=== PATIENT | male | born 1980 | race Caucasian/White ===

== ENCOUNTER 2024-11-03 09:05 | Outpatient (CLI) | payer OTHER ==
--- NOTE | 2024-11-03 13:02 | RADIOLOGY REPORT ---
CLINICAL INFORMATION: Left wrist pain. Osteoarthritis. COMPARISON: None available at the time of dictation. TECHNIQUE: Multisequence multiplanar MRI images of the left wrist were obtained without contrast. FINDINGS: TFCC: Full-thickness perforation of the articular disc of the TFCC at its ulnar aspect. ULNAR VARIANCE: Neutral. DRUJ: No dislocation or subluxation. Moderate to severe arthritic changes of the distal radioulnar kurtis int with prominent subchondral sclerosis and cystic change of the sigmoid notch of the distal radius and adjacent portions of the distal ulna. LIGAMENTS: No widening of the scapholunate or lunotriquetral intervals to suggest significant scaphol unate or lunotriquetral ligament tears. Motion artifact limits evaluation for subtle findings in thes e ligaments. Edema and indistinctness of the fibers of the radial collateral ligament of the wrist, l ikely sequela of at least partial-thickness tear, may be chronic. Limited evaluation due to motion ar tifact. FLEXOR TENDONS: Unremarkable signal intensity and course. No significant tendinosis, tenosynovitis, o r tear. CARPAL TUNNEL: Unremarkable. Normal appearance of the median nerve and flexor retinaculum. EXTENSOR TENDONS: Unremarkable signal intensity and course. No significant tendinosis, tenosynovitis, or tear. BONES/JOINTS: Severe arthritic changes at the radiocarpal joint and ulnocarpal joint with severe join t space narrowing and prominent subchondral cystic change involving the distal radius, distal ulna, a nd proximal aspects of the lunate. There is extensive marrow edema in the lunate and areas of cortica l deformity at its proximal aspect. 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 Prominent artifact along the dorsal aspect of the distal ulna, li belkis sequela of prior postsurgical changes. There is cortical deformity of the distal articular surf mitchel of the ulna, may be due to a sequela of postsurgical changes and arthritic changes. Moderate arth ritic changes are seen of the 1st carpometacarpal joint and triscaphe joint with joint space narrowin g and mild osteophytes. Marrow edema in the distal radius and distal ulna are likely due to a combina tion of arthritic changes and stress related changes. OTHER: No other significant findings. IMPRESSION: 1. Arthritic changes of the wrist involving the radiocarpal joint, ulnocarpal joint, distal radioulna r joint as detailed above. 2. Extensive marrow edema, sclerosis, and cortical deformity of the lunate as described above. 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 3. Moderate arthritic changes in the 1st carpometacarpal joint and triscaphe joint. 4. 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 5. Suspected tear of the radial collateral ligament of the wrist, of uncertain chronicity, may be chr onic. 6. Motion artifact limits evaluation for subtle findings. 7. Additional findings as described above.
== END 2024-11-03 23:59 | disposition home or self-care (01) ==
LOC: MRI02 09:05
PROVIDERS: ATTEND Physician Assistant
DX: S63.31 Traumatic rupture of collateral ligament of wrist (principal); M19.032 Primary osteoarthritis, left wrist; M25.532 Pain in left wrist; M18.12 Unilateral primary osteoarthritis of first carpometacarpal joint, left hand; X58.XXXA Exposure to other specified factors, initial encounter; Y93.89 Activity, other specified; Y92.89 Other specified places as the place of occurrence of the external cause; Y99.8 Other external cause status
CPT/HCPCS: 73221

== ENCOUNTER 2024-11-20 10:27 | Day surgery (SDC) | payer OTHER ==
--- NOTE | 2024-11-17 12:15 | ELECTROCARDIOGRAPH REPORT ---
[facility] Test Date: 2024-11-17 Test Time: 12:10:48 Pat Name: HERNANDEZ CHÁVEZ Department: [facility]-PRE-OP Patient ID: [facility]-[id number] Room: Gender: M Quality Consultant: REGLA : 1980 Requested By: ANUEL ACEVEDO Order Number: [id number] Reading MD: Dr. SONIA Monzon Measurements Intervals [place] Rate: 67 P: 61 [place]: 180 QRS: 89 QRSD: 110 T: 70 QT: 408 QTc: 431 Interpretive Statements Sinus rhythm ST elev, probable normal early repol pattern Electronically Signed On 11-17-2024 13:45:[address] SONIA Monzon Please click the below link to view image of tracing.
[2024-11-17 12:21] LABS: BASOPHILS # (AUTO) 0.1 X10'3 (0-0.2); BASOPHILS % (AUTO) 0.9 % (0-1); EOSINOPHILS # (AUTO) 0.2 X10'3 (0-0.9); EOSINOPHILS % (AUTO) 3.1 % (0-6); LYMPHOCYTES # (AUTO) 1.6 X10'3 (1.1-4.8); LYMPHOCYTES % (AUTO) 29.2 % (21-51); MEAN CORPUSCULAR HEMOGLOBIN 30.2 PG (27.0-31.0); MEAN CORPUSCULAR HGB CONC 33.5 g/dL (33.0-36.5); MEAN CORPUSCULAR VOLUME 90.1 FL (78-98); MEAN PLATELET VOLUME 8.2 FL (7.4-10.4); MONOCYTES # (AUTO) 0.4 X10'3 (0-0.9); MONOCYTES % (AUTO) 7.2 % (2-12); NEUTROPHILS # (AUTO) 3.2 X10'3 (1.8-7.7); NEUTROPHILS % (AUTO) 59.6 % (42-75); PRE OP HEMATOCRIT 41.9 % (42.0-52.0); PRE OP PLATELET COUNT 234 X10'3 (140-440); PRE OP WHITE BLOOD COUNT 5.4 10'3 (4.8-10.8); RED BLOOD COUNT 4.65 X10'6 (4.70-6.10); RED CELL DISTRIBUTION WIDTH 12.6 % (11.5-14.5)
[2024-11-17 12:38] LABS: ALBUMIN 4.2 G/DL (3.4-5.0); ALBUMIN/GLOBULIN RATIO 1.4 (1.1-1.5); ALKALINE PHOSPHATASE 53 IU/L (46-116); BLOOD UREA NITROGEN 18 MG/DL (7-18); BUN/CREATININE RATIO 19.6 (10.0-20.0); CALCIUM 8.8 MG/DL (8.5-10.1); CHLORIDE 100 MMOL/L (99-107); CREATININE 0.92 MG/DL (0.60-1.10); PRE OP ALT 22 U/L (30-65); PRE OP AST 13 U/L (10-37); PRE OP BILIRUB, TOTAL 0.5 MG/DL (0.0-1.0); PRE OP GLUCOSE 93 MG/DL (70-104); PRE OP POTASSIUM 4.2 MMOL/L (3.4-5.1); TOTAL CARBON DIOXIDE 29.2 MMOL/L (24-32); TOTAL PROTEIN 7.2 G/DL (6.4-8.2); eGFR 90 ML/MIN
[2024-11-17 12:39] LABS: PRE OP ANION GAP 6 (8-16); PRE OP SODIUM 135 MMOL/L (135-145)
[~2024-11-20] VITALS: Ht 188 cm; Wt 103.9 kg
[2024-11-20] VITALS (9 sets, daily range): BP systolic 117–130; BP diastolic 69–91; PULSE 53–60; RESP 9–18; TEMP 97.5; O2SAT 95–98
[2024-11-20] MEDS: ceFAZolin 2gm/dext,iso 50mL 50 ML IV ONE (05:30)
[2024-11-20] MEDS: ringers solution, lacted 1,000 ML IV SCH (05:30)
[~2024-11-20 10:27] MED LIST: CARI3CAP PO; DEXT20CA4 PO; ESZO3TAB66 PO; METF-438 PO; PRAZ2CAP2 PO; SERT-434 PO
[2024-11-20] MEDS: famotidine 20mg tablet PO ONE (11:07)
[2024-11-20] MEDS ORDERED: LIDOcaine 1% 30ml preserv. free vial ONE (12:18)
[2024-11-20] MEDS ORDERED: fentaNYL/PF 50MCG/1 ML 2ML syringe ONE ×2 (12:23→12:42)
[2024-11-20] MEDS ORDERED: MIDAZolam 1 MG/ML 5ML VIAL ONE (12:23)
[2024-11-20] MEDS ORDERED: 0.9 % SODIUM CHLORIDE 10 ML VIAL ONE (12:32)
[2024-11-20] MEDS ORDERED: ketorolac trometh 30MG/ML vial 30 MG/ML VIAL ONE (12:32)
[2024-11-20] MEDS: BUPIVAcaine/PF 2.5mg/ml (0.25%) 10ml vial IJ ONE (12:43)
[2024-11-20] MEDS ORDERED: BUPIVAcaine/PF 2.5mg/ml (0.25%) 10ml vial ONE (13:04)
[2024-11-20] MEDS ORDERED: propofol inj 20 ML IV ONE (13:18)
[2024-11-20] MEDS ORDERED: acetaminophen 1,000mg/100ml IV 100 ML IV ONE (13:19)
--- NOTE | 2024-11-20 16:29 | OPERATIVE REPORT ---
Operative Report Providers to CC ~ Date of Procedure: Nov 20, 2024 Pre-Operative Diagnosis: Left wrist arthritis TFCC tear Post-Operative Diagnosis Left wrist joint arthritis, left wrist triangular fibrocartilage complex tear Procedure Performed Left wrist arthroscopy with debridement of torn triangular fibrocartilage and wrist joint Surgeon: Alcon Cox MD Slip Cover Estimator None Anesthesiologist: Tyler Ryan Type of Anesthesia: Regional Findings: Distal radius arthritis at the lunate facet, evidence of peripheral TFCC repair width propagated tear of central TFCC disc and membranous lunotriquetral and scapholunate ligament tears, dorsal wrist synovitis Estimated Blood Loss: None Specimen Removed: None Description of Procedure: The patient is a 44-year-old man with a history of left wrist pain and history of previous wrist arthritis. He has had prior surgery which included a TFCC repair and apparently a distal ulnar shortening wafer type procedure. He cont inues to have pain and mechanical symptoms in the left wrist despite conservative treatment. Surgery is indicated in an attempt to improve symptoms. Risks and benefits were discussed with the patient. He knows he has some wrist arthritis and complete relief of pain is unlikely. Potential risks of the procedure include but are not limited to infection, bleeding, nerve or vessel d amage and tendon injury. He agrees to proceed. Block was given in the operating room and the arm was prepped and draped in usu al manner time-out procedure was observed. The wrist was placed in the arthroscopy tower landmarks were identified. The 1st incision was made at the three four interval with the incision through just the skin and blunt penetration of the capsule for placement of the camera. This was then used to help develop a 6R portal where a shaver was placed. There was noted to be loss of articular cartilage in the lunate facet. A chronic appearing degenerative tear of the TFCC and suture placement for peripheral repair done previously. There did not appear to be any peripheral tears at this time. There was also membranous the [place] triquetral and the scapholunate tears but no gross instability. There was also significant dorsal wrist synovitis. Shaver was used to debride the entire area as well as the TFCC tear and the membranous ligaments. The scope and shaver were switched and further dorsal wrist joint debridement was done. Mid carpal row was entered with a camera and no instability or lesions were noted. The wrist was then cleaned out and the scope was removed. Marcaine was injected in the portals were closed with Steri- Strips. A soft dressing was then applied and the tourniquet was released. The hand perfused well and he was taken to the recovery room in stable condition. He tolerated the procedure well. ALCON COX Jr., MD Nov 20, 2024 16:29
== END 2024-11-20 14:53 | disposition home or self-care (01) ==
LOC: PAS 10:27
PROVIDERS: ATTEND Orthopaedic Surgery Hand Surgery
DX: M19.032 Primary osteoarthritis, left wrist (principal); S63.592A Other specified sprain of left wrist, initial encounter; F43.10 Post-traumatic stress disorder, unspecified; F41.9 Anxiety disorder, unspecified; F31.9 Bipolar disorder, unspecified; Z87.891 Personal history of nicotine dependence; Z98.890 Other specified postprocedural states; X58.XXXA Exposure to other specified factors, initial encounter; Y93.89 Activity, other specified; Y92.89 Other specified places as the place of occurrence of the external cause; Z79.899 Other long term (current) drug therapy; Y99.8 Other external cause status
CPT/HCPCS: 29846; 36415; 80053; 82948; 85025; 93005; J0131; J1885; J2003; J2250; J2704; J3010; J3490; J7030; J7120; Z7506; Z7508; Z7512; A4215; A4618; A6449; A7000